=== PATIENT | female | born 1955 | race Caucasian/White ===

== ENCOUNTER → 2020-08-02 08:55 | Outpatient (BNVA) | payer MEDICARE, SELFPAY | PROVIDERS: Family Provider Nurse Practitioner Family; PCP Family Medicine; Visit Provider Nurse Practitioner | DX: Z20.828 Contact with and (suspected) exposure to other viral communicable diseases (principal) | CPT/HCPCS: 87635 ==

== ENCOUNTER → 2020-08-16 13:03 | Outpatient (BNVA) | payer MEDICARE, OTHER, SELFPAY | PROVIDERS: Family Provider Nurse Practitioner Family; PCP Family Medicine; Visit Provider Emergency Medicine | DX: Z20.828 Contact with and (suspected) exposure to other viral communicable diseases (principal) | CPT/HCPCS: 87635 ==

== ENCOUNTER 2020-11-05 12:41 | Outpatient (CLI) | payer MEDICARE, SELFPAY ==
--- NOTE | 2020-11-05 12:54 | MM_ITS ---
WS: [id number] BILATERAL DIGITAL SCREENING MAMMOGRAPHY WITH CAD CLINICAL INFORMATION: SCREENING HISTORY: Screening mammogram. No current complaints. COMPARISON: TECHNIQUE: Bilateral CC and MLO views. FINDINGS: The breasts are composed of heterogeneous fibroglandular density tissue, which can limit the detectio n of small underlying mass lesions. No suspicious mass, asymmetry, calcifications, or architectural d istortion. No evidence of malignancy. Punctate and lucent centered calcifications. MM/[id number] IMPRESSION: BI-RADS: 2-Benign FOLLOW UP: 1 Year Follow-up Recommend return to annual screening mammography.
== END 2020-11-05 12:42 | disposition home or self-care (01) ==
LOC: RADSHAW 12:42
PROVIDERS: PCP Family Medicine; Visit Provider Family Medicine
DX: Z12.31 Encounter for screening mammogram for malignant neoplasm of breast (principal)
CPT/HCPCS: 77067

== ENCOUNTER 2021-02-23 12:52 | Outpatient (CLI) | payer MEDICARE, SELFPAY ==
--- NOTE | 2021-02-23 13:06 | US_ITS ---
NOTE: Report was unsigned for reason: Ordering provider was edited. Original Signature date and time was: 02/23/21 @ 5339 WS: [id number] ULTRASOUND RENAL TECHNIQUE: Ultrasound examination of both kidneys. CLINICAL INFORMATION: CKD III COMPARISON: None. FINDINGS: RIGHT: Right kidney is normal in size and appearance. Echogenicity: Normal. Cortical thickness: 1.3 cm; Normal. Hydronephrosis: None. Perinephric fluid: None. Right kidney measures: 8.5 cm x 4.0 cm x 3.5 cm. LEFT: Left kidney is normal in size and appearance. Echogenicity: Normal. Cortical thickness: 1.3 cm; Normal. Hydronephrosis: None. Perinephric fluid: None. Left kidney measures: 9.1 cm x 5.7 cm x 4.7 cm. Urinary bladder: The urinary bladder is morphologically normal. No free fluid is seen in the pelvis. Bladder volume Prevoid bladder: estimated volume 111 ml. Postvoid bladder: estimated volume 4 ml. [facility] US/US renal BI with PV bladder IMPRESSION: 1. Prevoid bladder: estimated volume 111 ml. 2. Postvoid bladder: estimated volume 4 ml. 3. No hydronephrosis in either kidney.
== END 2021-02-23 12:53 | disposition home or self-care (01) ==
LOC: RAD 12:58
PROVIDERS: PCP Family Medicine; Visit Provider Internal Medicine Nephrology
DX: N18.30 Chronic kidney disease, stage 3 unspecified (principal)
CPT/HCPCS: 76770; 76857

== ENCOUNTER 2021-03-18 12:07 | Emergency (ER) | payer MEDICARE, SELFPAY ==
[2021-03-18 12:38] VITALS: BP 124/83; PULSE 64; RESP 18; TEMP 36.7; O2SAT 96; BMI 25.8
[2021-03-18 12:44] VITALS: BP 122/64; PULSE 62; RESP 18; O2SAT 96
--- NOTE | 2021-03-18 12:53 | W.ED.GENADLT ---
HPI - General Adult General: Chief complaint: General Medical Stated complaint: mass w/pain behind L shoulder, sore on R 3rd digit Time Seen by Provider: 03/18/21 12:45 History of Present Illness: HPI narrative: Patient complains about right ring finger cyst/growth that is bothered for quite a while. She has popped it open draining some fluid out of it and continues to bother her. Then she also was told she had tubular lipoma on her back and she said that is of some discomfort at times. She had seen her primary care provider about it but did discuss it with her kidney specialist who found it. Onset (ago): week(s) Associated symptoms: Deny chest pain, dyspnea, headache(s), nausea, rash or vomiting Review of Systems Const: Denies: fever(s), chills or body aches Eyes: Denies: change in vision or blurry vision ENMT: Denies: throat pain or nasal congestion Card: Denies: chest pain or dyspnea on exertion Resp: Denies: dyspnea, productive cough or non-productive cough GI: Denies: abdominal pain, nausea or vomiting Musc: Reports: other (Tenderness left shoulder blade where she was recently diagnosed with tubula); Denies: extremity pain Skin/Breast: Reports: erythema, skin tenderness (Tenderness on right ring finger times a few weeks from a growth.) and skin swelling; Denies: rash Neuro: Denies: headache(s) Psych: Denies: anxiety or depression Fran/Lymph: Denies: easy bruising PFSH ED PFSH: Social History (Updated 08/16/20 @ 10:50 by Talita Eugene [facility]) Smoking and tobacco status: never smoked Alcohol intake: never Physical Exam Const: COMMON NORMALS: no acute distress, average body habitus and patient oriented x3 HENMT: COMMON NORMALS: normocephalic HEAD & SCALP: normal to inspection and normocephalic FACE & SINUS: normal facial exam Eye: COMMON NORMALS: conjunctivae normal GENERAL EYE: appearance normal, both eyes and all related structures CONJUNCTIVA: Yes conjunctivae normal Neck/C-Spine: COMMON NORMALS: no JVD Chest: COMMONS NORMALS: normal inspection of the chest Resp: COMMON NORMALS: normal respiratory effort Cardio: COMMON NORMALS: no JVD GI: COMMON NORMALS: Normal to inspection, nondistended, normoactive bowel sounds present Extremity: COMMON NORMALS: normal to inspection and full ROM Neuro: COMMON NORMALS: patient oriented x3 Skin: OTHER: Right ring finger DIP joint dorsal surface shows what appears to be a synovial type cyst that is coming through the surface of the skin with slight redness extending toward the base of the nail plate. It is tender to touch. Patient also has tenderness left shoulder blade to the skin right below the shoulder blade where she was recently diagnosed with tubular lipoma Course Vital Signs: Vital signs: Vital Signs Temperature 98.1 F 03/18/21 12:38 Pulse Rate 64 03/18/21 12:38 Respiratory Rate 18 03/18/21 12:38 Blood Pressure 124/83 03/18/21 12:38 Pulse Oximetry 96 03/18/21 12:38 Discharge Plan Discharge Patient Disposition: Home Clinical Impression: Synovial cyst Cellulitis Qualifiers: Site of cellulitis: extremity Site of cellulitis of extremity: finger Laterality: right Qualified Code(s): L03.011 - Cellulitis of right finger Condition: Stable Prescriptions: New Voltaren 1 % gel 4 g topical QID Qty: 100 RF: 0 cephalexin 500 mg capsule 500 mg PO Q8H 7 Days Qty: 21 RF: 0 No Action doxycycline hyclate 100 mg tablet 100 mg PO BID RF: 0 gabapentin 400 mg capsule 400 mg PO BID RF: 0 albuterol sulfate [ProAir HFA] 90 mcg/actuation HFA aerosol inhaler 2 puff inhalation Q6H PRNRF: 0 citalopram 10 mg tablet 10 mg PO DAILY RF: 0 omeprazole 20 mg tablet,delayed release (DR/EC) 20 mg PO DAILY RF: 0 Discharge Orders: Discharge ED (Routine); Ordered 03/18/21 Ordered By: Francois Aguilera Referrals: Titi Fernandes [Primary Care Provider] - Discharge Diet: Usual diet Discharge Activity: Increase activity as tolerated Activity Restrictions/Additional Instructions: Take medicine as prescribed. Follow-up Dr. Mahoney if no significant improvement. Discussed Dr. Mahoney the mass on your back. 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
[2021-03-18 13:21] VITALS: BP 122/64; PULSE 62; RESP 18; O2SAT 97
== END 2021-03-18 13:23 | disposition home or self-care (01) ==
PROVIDERS: Emergency Provider Nurse Practitioner Family; PCP Family Medicine
DX: M71.341 Other bursal cyst, right hand (principal); L03.011 Cellulitis of right finger
CPT/HCPCS: 99281

== ENCOUNTER 2021-06-10 11:39 | Outpatient (CLI) | payer MEDICARE, SELFPAY ==
[2021-06-10 12:21] LABS: Basophils # 0.1 10^3/uL (0.0-0.1); Basophils % 0.9 %; Eosinophils # 0.1 10^3/uL (0.0-0.8); Eosinophils % 1.5 %; Hematocrit 38.2 % (37.0-47.0); Hemoglobin 12.1 g/dL (11.5-15.3); Lymphocytes # 2.2 10^3/uL (0.8-4.8); Lymphocytes % 41.4 %; Mean Corpuscular HGB Conc 31.7 g/dL (30.0-36.0); Mean Corpuscular Hemoglobin 30.7 pg (28.0-34.0); Mean Platelet Volume 9.7 fL (7.4-10.4); Monocytes # 0.3 10^3/uL (0.2-0.9); Monocytes % 5.6 %; Neutrophils # 2.71 10^3/uL (1.8-7.7); Neutrophils % 50.4 %; Nucleated Red Blood Cells % 0 %; Platelet Count 329 10^3/cmm (130-400); Red Blood Count 3.94 10^6/uL (4.1-5.3); Red Cell Distribution Width 11.9 % (12.1-15.1); White Blood Count 5.4 10^3/uL (4.0-10.0)
[2021-06-10 12:47] LABS: Alanine Aminotransferase 17 U/L (0-33); Albumin Level 4.3 g/dL (3.5-5.2); Alkaline Phosphatase 77 IU/L (35-105); Anion Gap 12.9 (5-19); Aspartate Amino Transferase 16 U/L (0-32); Blood Urea Nitrogen 10 mg/dL (8-23); Calcium 9.6 mg/dL (8.5-10.5); Carbon Dioxide 27 mmol/L (22-29); Chloride 103 mmol/L (98-107); Globulin 3.1 g/dL (1.3-4.6); Glomerular Filtration Rate 100.3 mL/min (90-130); Glucose 80 mg/dL (65-115); Immunoglobulin IGA 146 mg/dL (70-400); Immunoglobulin IGG 940 mg/dL (700-1600); Immunoglobulin IGM 59 mg/dL (40-230); Osmolality Calculated 286 mOsm/kg (285-295); Potassium 3.9 mmol/L (3.5-5.1); Sodium 139 mmol/L (136-145); Total Bilirubin 0.2 mg/dL (0.15-1.2); Total Protein 7.4 g/dL (6.6-8.7)
[2021-06-11 11:48] LABS: Alpha 1 Antitrypsin 147 mg/dL (83-199)
[2021-06-11 16:47] LABS: Immunoglobulin E 4 kU/L (<OR=114)
== END 2021-06-10 11:40 | disposition home or self-care (01) ==
PROVIDERS: PCP Family Medicine; Visit Provider Internal Medicine Pulmonary Disease
DX: J47.9 Bronchiectasis, uncomplicated (principal)
CPT/HCPCS: 36415; 80053; 82103; 82784; 82785; 85025; 86431; 87015; 87070; 87102; 87116; 87205; 87206; 87801

== ENCOUNTER → 2021-12-17 14:15 | Outpatient (BNVA) | payer MEDICARE, SELFPAY | PROVIDERS: PCP Family Medicine; Referring Provider Family Medicine; Visit Provider Podiatrist Foot & Ankle Surgery | DX: M76.71 Peroneal tendinitis, right leg (principal); G57.62 Lesion of plantar nerve, left lower limb; Z87.891 Personal history of nicotine dependence | CPT/HCPCS: 73630; 99204 ==